=== PATIENT | male | born 1985 | race Caucasian/White ===

== ENCOUNTER 2020-05-16 00:47 | Emergency (ER) | payer MEDICAID ==
[~2020-05-16] VITALS: Ht 200.7 cm; Wt 122.0 kg
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
--- NOTE | 2020-05-16 01:14 | NUR ---
Dr. Norris at bedside for MSE.
[2020-05-16] MEDS ORDERED: SILVER SULFADIAZINE 1% CREAM 25 GM TUBE TP ONE (01:28)
[2020-05-16] MEDS ORDERED: SILVER SULFADIAZINE 1% CREAM 50 GM TP ONE (01:30)
--- NOTE | 2020-05-16 02:14 | NUR ---
Patient given written and verbal discharge instructions. Patient verbalizes understanding of instructions. Patient is ambulatory with steady gait. Refuses offer of halfway placement. Patient given list of available shelters in surrounding area.
--- NOTE | 2020-05-16 03:01 | NUR ---
Patient left with stable gait, refused to sign homeless waiver form, refused all resources at this time.
[2020-05-16 03:04] VITALS: BP 138/95
== END 2020-05-16 03:04 | disposition home or self-care (01) ==
LOC: ER 00:52
DX: Z03.6 Encounter for observation for suspected toxic effect from ingested substance ruled out (principal); T22.012D Burn of unspecified degree of left forearm, subsequent encounter; T21.02XD Burn of unspecified degree of abdominal wall, subsequent encounter; X08.8XXD Exposure to other specified smoke, fire and flames, subsequent encounter; Z59.0 Homelessness
CPT/HCPCS: A4663